=== PATIENT | female | born 1990 | race Caucasian/White ===

== ENCOUNTER 2018-08-13 11:12 | Emergency (ER) | payer OTHER ==
[~2018-08-13] VITALS: Ht 172.7 cm; Wt 95.0 kg
[2018-08-13] MEDS ORDERED: LEVO500T59 PO (11:42)
--- NOTE | 2018-08-13 11:44 | PHYS DOC ---
Adult General Chief Complaint Chief Complaint: SHORTNESS OF BREATH HPI HPI Patient is a 28-year-old female who presents with complaint of chest and sinus congestion for the last several days. She indicates that she has had a productive cough as well as some purulent nasal drainage. She denies any fever. She does indicate that she has also had congestion in her ears as well. She denies any chest pain but does indicate that she feels a little bit short of breath at times. She states that the shortness breath is worsened with exertion.[] Review of Systems Review of Systems Constitutional: Denies fever or chills [] HENT: Positive nasal congestion with purulent nasal discharge[] Respiratory: Positive productive cough and shortness of breath [] Cardiovascular: No additional information not addressed in HPI [] Neurologic: Denies headache, focal weakness or sensory changes [] Physical Exam Physical Exam Constitutional: Well developed, well nourished, no acute distress, non-toxic appearance. [] HENT: Normocephalic, atraumatic, bilateral external ears normal, oropharynx moist, no oral exudates, maxillary sinuses are tender to palpation. [] Cardiovascular:Heart rate regular rhythm, no murmur [] Lungs & Thorax: Bilateral breath sounds clear to auscultation [] Extremities: No tenderness, no cyanosis, no clubbing, ROM intact, no edema. [] EKG EKG [] Radiology/Procedures Radiology/Procedures [] Course & Med Decision Making Course & Med Decision Making Pertinent Labs and Imaging studies reviewed. (See chart for details) [] Dragon Disclaimer Dragon Disclaimer This electronic medical record was generated, in whole or in part, using a voice recognition dictation system. Departure Departure: Impression: Primary Impression: Acute sinusitis Disposition: 01 HOME, SELF-CARE Condition: STABLE Referrals: PCP,NO (PCP) Patient Instructions: Form - Excuse from Work, School, or Physical Activity, Sinusitis Scripts Levofloxacin (LEVAQUIN) 500 Mg Tablet 1 TAB PO DAILY for infection, #10 TAB Prov: THOMPSON FAROOQ Jr. DO 08/13/18 Problem Qualifiers Primary Impression: Acute sinusitis Sinusitis location: maxillary Recurrence: non-recurrent Qualified Codes: J01.00 - Acute maxillary sinusitis, unspecified THOMPSON FAROOQ Jr. DO Aug 13, 2018 11:44
[2018-08-13 11:45] VITALS: BP 135/94
== END 2018-08-13 11:55 | disposition home or self-care (01) ==
LOC: ER 11:12
DX: J01.00 Acute maxillary sinusitis, unspecified (principal)
CPT/HCPCS: 99283

== ENCOUNTER → 2018-08-29 | Outpatient (CLI) | payer OTHER ==
[2018-08-13 11:45] VITALS: BP 135/94
[~2018-08-29] MED LIST: LEVO500T59 PO
[2018-08-29 10:42] LABS: BASO # 0.1 x10^3/uL (0.0-0.2); BASO % 1 % (0-3); EOS # 0.3 x10^3/uL (0.0-0.7); EOS % 4 % (0-3); HEMATOCRIT 43.2 % (36.0-47.0); HEMOGLOBIN 14.3 g/dL (12.0-15.5); LYMPH # 2.9 x10^3/uL (1.0-4.8); LYMPH % 38 % (24-48); MEAN CORPUSCULAR HEMOGLOBIN 30 pg (25-35); MEAN CORPUSCULAR HGB CONC 33 g/dL (31-37); MEAN CORPUSCULAR VOLUME 91 fL (79-100); MONO # 0.5 x10^3/uL (0.0-1.1); MONO % 7 % (0-9); NEUT # 3.9 x10^3uL (1.8-7.7); NEUT % 51 % (31-73); PLATELET COUNT 324 x10^3/uL (140-400); RED BLOOD COUNT 4.77 x10^6/uL (3.50-5.40); WHITE BLOOD COUNT 7.6 x10^3/uL (4.0-11.0)
[2018-08-29 11:21] LABS: ALBUMIN 3.7 g/dL (3.4-5.0); ALBUMIN/GLOBULIN RATIO 1.1 (1.0-1.7); CALCIUM 9.8 mg/dL (8.5-10.1); CREATININE 0.6 mg/dL (0.6-1.0); GFR 120.8; POTASSIUM 4.4 mmol/L (3.5-5.1); TOTAL BILIRUBIN 0.2 mg/dL (0.2-1.0); TOTAL PROTEIN 7.1 g/dL (6.4-8.2)
== END | disposition home or self-care (01) ==
LOC: PMG 09:41
PROVIDERS: ATTEND Family Medicine
DX: Z02.1 Encounter for pre-employment examination (principal)
CPT/HCPCS: 36415; 80053; 80061; 85025

== ENCOUNTER → 2018-09-12 | Outpatient (CLI) | payer OTHER ==
[2018-08-13 11:45] VITALS: BP 135/94
[~2018-09-12] MED LIST changes: +BARIUM SULFATE 60% 355 ML SUSP PO ONE; +BARIUM SULFATE 98% 135 ML SUSP PO ONE
--- NOTE | 2018-09-12 11:36 | RAD ---
Esophagram HISTORY: Reflux, hiatal hernia. PROCEDURE: Fluoroscopic observation of the esophagus was performed after administration of effervescent, and during swallowing of thick and thin barium, in various upright and not upright positions.. FINDINGS: Suboptimal mucosal coating of the pharynx and esophagus. No evidence of fixed stricture or filling defect. Normal peristaltic waves are visualized during swallowing. No mucosal abnormality is seen. A minimal amount of residual contrast persisted in the distal esophagus, despite rotating the patient. This did mostly clear as the patient was moving toward an upright position. Very small hiatal hernia is visualized. Gastroesophageal reflux was not documented during the exam despite provocative maneuvers. Preliminary chest x-ray demonstrates no infiltrate, pneumothorax or pleural effusion. Cardiomediastinal silhouette is not enlarged. Postprocedural radiograph demonstrates expected transit of contrast through the stomach and small bowel. Note is again made of a small amount of residual contrast in the distal esophagus and hiatal hernia. IMPRESSION: 1. Small hiatal hernia. 2. Mild persistence of residual contrast in the distal esophagus. 3. Gastric reflux of contrast into the stomach was not documented during the exam despite provocative maneuvers. Electronically signed by: Rudi Park MD (09/12/2018 11:33 AM) [id number]
== END | disposition home or self-care (01) ==
LOC: RAD 08:25
PROVIDERS: ATTEND Internal Medicine Gastroenterology
DX: K44.9 Diaphragmatic hernia without obstruction or gangrene (principal)
CPT/HCPCS: 74220